=== PATIENT | male | born 1995 | race Caucasian/White ===

== ENCOUNTER 2018-01-17 18:05 | Emergency (ER) | payer OTHER ==
--- NOTE | 2018-01-17 18:10 | EDPHY ---
H & P Time Seen by Provider: 01/17/18 18:20 HPI/ROS: Chief complaint: Left patellar dislocation History of present illness: This is a 22-year-old male who presents to the emergency department with EMS concerned he dislocated his left patella. Patient has dislocated it previously. He was playing soccer today when another player struck him. The patella has been pushed to the outside. He cannot move the knee. EMS provided him with 100 mcg of fentanyl with good pain control. He denies other associated signs or symptoms including no open wounds, no abnormal coolness or paresthesias in the leg. No trauma reported. Physical Exam: General: Alert, nontoxic Skin: No open wounds to the left leg Musculoskeletal: Obvious lateral dislocation of the left patella. Vascular: DP and PT pulses 2+. Neurologic: Sensation intact throughout the left leg. Constitutional: Initial Vital Signs Temperature (C) 36.8 C 01/17/18 18:11 Heart Rate 77 01/17/18 18:11 Respiratory Rate 18 01/17/18 18:11 Blood Pressure 124/85 H 01/17/18 18:11 O2 Sat (%) 99 01/17/18 18:11 O2 Delivery Mode Room Air Allergies/Adverse Reactions: No Known Allergies Allergy (Unverified 08/16/09 16:30) Home Medications: Medication Instructions Recorded NK [No Known Home Meds] 01/17/18 MDM/Departure - MDM Imaging Results: Imaging Impressions Knee X-Ray 01/17/18 18:08 Impression: 1. Small effusion suprapatellar bursa. 2. Good position of the left patella postreduction. No fracture seen. Imaging: I viewed and interpreted images myself Procedures: Procedure: Dislocation reduction. The dislocation of the left patella was reduced using gentle pressure without complications. Post reduction the patient's neurovascular exam is normal. Post reduction x-ray demonstrates reduction of the joint to the anatomic position. The procedure was performed by myself. Procedure: Splint placement. A Velcro knee immobilizer splint was applied. After application of the splint I returned and re-examined the patient. The splint was adequately immobilizing the joint and distal to the splint the patient's circulation and sensation was intact. Patient is placed on crutches Medications Given: Discontinued Medications Ibuprofen (Motrin) 600 mg PO EDNOW ONE Stop: 01/17/18 18:26 Last Admin: 03/18/18 18:28 Dose: 600 mg ED Course/Re-evaluation: Patient seen under the supervision of my secondary supervising physician Dr. Viridiana Hwang. Patient presents to the emergency department for a left patellar dislocation. It is easily reduced. His leg is neurovascularly intact. It is splinted and he is given crutches. X-ray shows good alignment, no fracture. Patient is discharged home. Home care is discussed. He is to follow up with orthopedics for recheck. - Depart Disposition: Home, Routine, Self-Care Clinical Impression: Patellar dislocation Qualifiers: Encounter type: initial encounter Laterality: left Qualified Code(s): S83.005A - Unspecified dislocation of left patella, initial encounter Condition: Good Instructions: Patellar Dislocation (ED) Additional Instructions: Follow-up with orthopedics for continued evaluation and care If symptoms worsen or new symptoms develop return to the emergency room for recheck Referrals: Patient,NotPresent [Unknown] - As per Instructions Edgar De Jesus MD [Medical Doctor] - As per Instructions
[2018-01-17 18:14] VITALS: BP 124/85; PULSE 77; RESP 18; TEMP 98.2; O2SAT 99
[2018-01-17] MEDS ORDERED: IBUPROFEN 600 MG TAB PO ONE (18:25)
== END 2018-01-17 18:50 | disposition home or self-care (01) ==
LOC: EDUNIT#
PROC: 0QSFXZZ Reposition Left Patella, External Approach (ICD-10-PCS; principal; 2018-01-17)
DX: S83.005A Unspecified dislocation of left patella, initial encounter (principal); W51.XXXA Accidental striking against or bumped into by another person, initial encounter; Y99.8 Other external cause status; Y93.66 Activity, soccer
CPT/HCPCS: L1830